=== PATIENT | male | born 1980 | race Caucasian/White ===

== ENCOUNTER 2021-12-15 15:39 | Emergency (ER) | payer OTHER, SELFPAY ==
[2021-12-15 15:48] VITALS: BP 159/104; PULSE 103; RESP 18; TEMP 37.5; O2SAT 96; BMI 30.5
--- NOTE | 2021-12-15 17:23 | ED.WOUNDLAC ---
HPI - Wound/Laceration <KALA Hughes - Last Filed: 12/15/21 17:41> General Chief Complaint: Wound/Laceration Stated Complaint: WOUND LEFT FOOT Time Seen by Provider: 12/15/21 16:38 Source: patient Mode of arrival: Ambulatory History of Present Illness HPI narrative: 41-year-old male with history of diabetes and mild neuropathy and prior right foot wounds presents to the emergency department with left medial great toe wound which started 3 days ago when he hit a door and it opened up more. There is no bleeding, he denies any pain, states there was a blood blister which was painless to his great toe before that but now it is cracked open. He denies any pain, redness or streaking up his foot or leg, drainage, odor, or bleeding. Patient has full range of motion of his great toe without changes to his neuropathy. Patient states his neuropathy in his feet is moderate he does have some sensation but it is dull. Patient tetanus UTD: Yes Review of Systems <KALA Hughes - Last Filed: 12/15/21 17:41> Review of Systems Narrative: General: denies fever, chills, malaise, sweats, fatigue Head/Neck: denies headache, neck pain, dizziness Eyes: denies visual changes, eye pain Cardio: denies chest pain, palpitations, edema Respiratory: denies dyspnea, cough, orthopnea GI: denies abdominal pain, nausea, vomiting, or diarrhea : denies dysuria, hematuria, urinary retention, frequency or incontinence MSK: denies joint pain, muscle weakness left great toe wound/callus Skin: denies rash, itching, skin lesions or other Neuro: denies numbness, tingling Patient History <KALA Hughes - Last Filed: 12/15/21 17:41> Social History Smoking Status: Never smoker Smoking Status: Never smoker alcohol intake frequency: 3 or more drinks per day Alcohol type: other Substance Use Type: does not use Exam <KALA Hughes - Last Filed: 12/15/21 17:41> Narrative Exam Narrative: Independently reviewed vitals signs and nursing notes. General: Awake, alert, well-nourished and developed, nontoxic, no cardiorespiratory distress Head/Neck: Atraumatic, neck full range of motion, trachea midline, no JVD or lymphadenopathy. Supple, nontender, no meningeal signs. Eyes: Pupils equal round and reactive, EOMI, conjunctiva normal, no scleral icterus or injections Nose: nares patent, no rhinorrhea, without purulent drainage or septal hematoma. Mouth/Throat: uvula midline, moist mucus membranes, posterior pharynx normal, no oral lesions, airway patent Cardio: Regular rate and rhythm, no peripheral edema Respiratory: respirations unlabored without wheezing, stridor, or rales. No retractions. GI: Abdomen soft, nontender, nondistended, no hepato-spenomegaly MSK: Moves all extremities, neurovascularly intact, no flank tenderness, left great toe medial aspect with thickened callus which is cracked, soft, was previously covered with Band-Aids, no purulent drainage, no erythema or edema, no streaking Skin: Normal capillary refill, no rash Neuro: Normal speech and cognition, normal gait, A&O x3 Initial Vital Signs Initial Vital Signs: Vital Signs Temperature 99.5 F 12/15/21 15:48 Pulse Rate 103 H 12/15/21 15:48 Respiratory Rate 18 12/15/21 15:48 Blood Pressure 159/104 H 12/15/21 15:48 Pulse Oximetry 96 12/15/21 15:48 <Olivier Pat DO - Last Filed: 12/15/21 17:44> Initial Vital Signs Initial Vital Signs: Vital Signs Temperature 99.5 F 12/15/21 15:48 Pulse Rate 103 H 12/15/21 15:48 Respiratory Rate 18 12/15/21 15:48 Blood Pressure 159/104 H 12/15/21 15:48 Pulse Oximetry 96 12/15/21 15:48 Course <KALA Hughes - Last Filed: 12/15/21 17:41> Orders Ordered: ED Orders 12/15/21 17:07 Wound Culture and Gram Stain Stat Vital Signs Vital signs: Vital Signs - 8 hr 12/15/21 15:48 12/15/21 17:27 Temperature 99.5 F Pulse Rate 103 H 90 Respiratory Rate 18 16 Blood Pressure 159/104 H Pulse Oximetry 96 99 <DO Gracie Chambers Last Filed: 12/15/21 17:44> Orders Ordered: ED Orders 12/15/21 17:07 Wound Culture and Gram Stain Stat Vital Signs Vital signs: Vital Signs - 8 hr 12/15/21 15:48 12/15/21 17:27 Temperature 99.5 F Pulse Rate 103 H 90 Respiratory Rate 18 16 Blood Pressure 159/104 H Pulse Oximetry 96 99 MDM - Wound/Laceration <Pratima ELYSE HyattP - Last Filed: 12/15/21 17:41> [facility] Narrative Medical decision making narrative: 41-year-old male presents to the emergency department with left great toe wound which has been present for a long time he says but he opened it a couple of days ago when he bumped a wall. Patient states he had a blood blister to the medial aspect of his great toe on the left but after he hit the wall, the base of it opened up,. On exam it appears like a cracked callus which is hydrated as it was covered with a Band-Aid. Gram stain and culture are pending. Patient is a diabetic with history of foot wounds on the right, moderate neuropathy in bilateral lower extremities. Patient denies any pain, no signs of infection, his vital signs are normal he has been afebrile, and without any purulence drainage, erythema, streaking, or edema. Patient was referred to wound care and podiatry for follow-up, no antibiotics or antifungals were prescribed today pending Gram stain and culture. Patient was given a work note as he says he works on his feet for long hours. Patient is appropriate and amenable to discharge home. Vital signs are stable on repeat examination is unremarkable. Patient has been informed of results. Patient has been given strict return to ER precautions for any new or worsening symptoms. Patient understands to follow up closely with outpatient providers as instructed. Patient understands plan and agrees to discharge home. All questions and concerns answered at this time. Discharge Plan Departure Patient Disposition: Home Clinical Impression: Open wound of great toe Qualifiers: Encounter type: initial encounter Laterality: left Qualified Code(s): S91.102A - Unspecified open wound of left great toe without damage to nail, initial encounter Instructions: DI for Diabetic Neuropathy, DI for Wound Infection Activity Restrictions/Additional Instructions: *You have been diagnosed with a foot wound and neuropathy with a history of diabetes. Please follow-up with Podiatry to establish care, and wound care, they will call [facility] please to referral. You may call to expedite an appointment that works with your schedule at [phone]. Please wait for us to call you about your culture and Gram stain if you need antibiotics or a yeast medication. At this point it does not look infected, and it did not appear to be a fungal infection yet however it is possible that there is fungus and there and we can call in a prescription for you if need be. Please follow-up with podiatry as well, I have attached Dr. Dylon Adam information, please call her and make an appointment to establish care and to look at your wound. Please see both wound care and podiatry, you may be able to get into 1 sooner than the other. I hope is starts to feel better and he will soon. Please keep a clean, wear dry socks, and keep it covered with a Band-Aid so that it can breathe underneath. *What to do: *Please continue to take your regular medications as directed. [ ] New medication prescriptions sent to your pharmacy: [ ] [ ] New medication written as a paper prescription [ x] No new medications given *Please follow up with your primary care provider in 2-3 days, call for an appointment. Let them know you were seen in the Emergency Department and that we ask that you be seen in follow up. We will electronically transmit a record of today's note if your PCP is in our system *If you do not have a primary care provider please contact the [facility] Resource line at [phone]. They will ask some questions about your medical history and help get you set up with a doctor in the community. *Return to Emergency Department if you should have any new, worsening or concerning symptoms, such as [fever greater than 101F, chills, worsening pain, persistent vomiting or other bothersome symptoms] Referrals: Nancy Corado DPM [Physician] - 3-5 days Stand Alone Forms: Work Release Note <Olivier Pat, - Last Filed: 12/15/21 17:44> Cosign ED Attending Cosbaronature Attestation: Dr Pat Co-Sign Statement: I was available for consultation during this patient's emergency department visit. This chart is signed by myself for administrative purposes only. I did not have direct contact with this patient during this visit. They were seen independently by the [facility].
[2021-12-15 17:27] VITALS: PULSE 90; RESP 16; O2SAT 99
== END 2021-12-15 17:28 | disposition home or self-care (01) ==
PROVIDERS: Emergency Provider Nurse Practitioner Critical Care Medicine
DX: S91.102A Unspecified open wound of left great toe without damage to nail, initial encounter (principal); E11.40 Type 2 diabetes mellitus with diabetic neuropathy, unspecified; W22.8XXA Striking against or struck by other objects, initial encounter
CPT/HCPCS: 87070; 87075; 87205; 99281; 99282